=== PATIENT | male | born 1945 | race African-American/Black ===

== ENCOUNTER 2017-08-04 17:10 | Emergency (ER) | payer MEDICARE, MEDICAID ==
[~2017-08-04] VITALS: Ht 175.3 cm; Wt 73.0 kg
[~2017-08-04 17:10] MED LIST: CLOP75TA15 PO; Metoprolol Tartrate PO; OR220 PO; [UNRECOGNIZED DRUG - OTHER] IV
[2017-08-05] MEDS ORDERED: ACETAMINOPHEN 325MG TABLET PO ONE (00:30)
[2017-08-05 05:26] VITALS: BP 148/75
== END 2017-08-05 05:27 | disposition home or self-care (01) ==
LOC: ER 20:12
DX: M25.572 Pain in left ankle and joints of left foot (principal); M25.562 Pain in left knee; E11.9 Type 2 diabetes mellitus without complications; I10 Essential (primary) hypertension; Z98.890 Other specified postprocedural states; W05.0XXA Fall from non-moving wheelchair, initial encounter; Y93.89 Activity, other specified; Y92.89 Other specified places as the place of occurrence of the external cause; Y99.8 Other external cause status
CPT/HCPCS: 73562; 73610; 99284

== ENCOUNTER 2017-08-05 05:38 | Emergency (ER) | payer MEDICARE, MEDICAID ==
[~2017-08-05] VITALS: Ht 175.3 cm; Wt 73.0 kg
[2017-08-05 06:37] VITALS: BP 140/50
== END 2017-08-05 11:07 | disposition home or self-care (01) ==
LOC: ER 05:38
DX: M79.606 Pain in leg, unspecified (principal); Z59.0 Homelessness
CPT/HCPCS: 99283

== ENCOUNTER 2018-09-02 21:03 | Emergency (ER) | payer MEDICARE, MEDICAID ==
[~2018-09-02] VITALS: Ht 170.2 cm; Wt 78.0 kg
[2018-09-03 14:23] VITALS: BP 154/73
== END 2018-09-03 14:37 | disposition home or self-care (01) ==
LOC: ER 21:03
DX: M79.661 Pain in right lower leg (principal); E11.9 Type 2 diabetes mellitus without complications; I10 Essential (primary) hypertension; H54.40 Blindness, one eye, unspecified eye; H26.9 Unspecified cataract; Z89.9 Acquired absence of limb, unspecified
CPT/HCPCS: 99283

== ENCOUNTER 2018-09-03 16:33 | Inpatient (IN) | payer MEDICARE, MEDICAID ==
[~2018-09-03] VITALS: Ht 175.3 cm; Wt 74.8 kg
[2018-09-03] MEDS ORDERED: ACETAMINOPHEN 325MG TABLET PO ONE ×2 (19:30→20:00)
[2018-09-04] MEDS ORDERED: CLONIDINE 0.1MG TABLET PO ONE (09:00)
[2018-09-04 10:57] LABS: BASOPHILS % 0.4 % (0.0-2.0); EOSINOPHILS % 2.7 % (0.0-5.0); HEMATOCRIT. 32.7 % (42.0-52.0); HEMOGLOBIN. 10.5 g/dL (14.0-18.0); LYMPHOCYTES % 20.7 % (20.0-50.0); MEAN CORPUSCULAR HEMOGLOBIN 29.2 pg (28.0-32.0); MEAN CORPUSCULAR VOLUME 90.8 fL (80.0-94.0); MEAN PLATELET VOLUME 8.6 fl (7.4-10.4); MONOCYTES % 9.2 % (2.0-8.0); PLATELET 174 x1000/uL (130-400); RED CELL DISTRIBUTION WIDTH 13.3 % (11.6-14.6)
[2018-09-04 11:01] LABS: CHLORIDE 108 mEq/L (98-107)
[2018-09-04 11:16] LABS: INR 1.2
[2018-09-04 11:22] LABS: CLARITY URINE TURBID (CLEAR); COLOR URINE YELLOW (YELLOW); KETONES URINE NEGATIVE (NEGATIVE); LEUKOCYTE ESTERASE URINE 3+ (NEGATIVE); NITRITE URINE NEGATIVE (NEGATIVE); OCCULT BLOOD URINE 2+ (NEGATIVE); PROTEIN URINE 1+ (NEGATIVE); SPECIFIC GRAVITY URINE 1.019 (1.005-1.030)
[2018-09-04] MEDS ORDERED: SODIUM CHLORIDE 0.9% 1,000 ML IV ONE ×2 (11:45)
[2018-09-04] MEDS ORDERED: INSULIN REGULAR (HUMULIN R) 300UNITS/3ML SUBCUT ONE (11:45)
[2018-09-04] MEDS ORDERED: CEFTRIAXONE 1 G PREMIX 50 ML IV ONE (11:45)
[2018-09-04] MEDS ORDERED: ZOLPIDEM TARTRATE 5MG TABLET PO PRN ×2 (12:30→16:00)
[2018-09-04] MEDS ORDERED: ENOXAPARIN 40MG/0.4ML SYR SUBCUT SCH ×2 (12:30→18:00)
[2018-09-04] MEDS ORDERED: DEXTROSE 50% WATER 50ML SYRINGE IV PRN ×2 (12:30→16:00)
[2018-09-04] MEDS ORDERED: MAGNESIUM/ALUMINUM HYDROXIDE/SIMETHICONE 30ML UDC PO PRN (12:30)
[2018-09-04] MEDS ORDERED: INSULIN LISPRO 100 UNITS/ML SUBCUT SCH ×2 (12:50→13:20)
[2018-09-04] MEDS ORDERED: BLOOD SUGAR DIAGNOSTIC STRIP TEST SCH (13:00)
[2018-09-04] MEDS ORDERED: LEVOFLOXACIN 500MG PREMIX 100 ML IV NR (14:09)
[2018-09-04] MEDS ORDERED: GUAIFENESIN 200MG/10ML SUGAR FREE UDC PO PRN (15:00)
[2018-09-04] MEDS: LEVOFLOXACIN 500MG PREMIX 100 ML IV SCH ×2 (15:00→17:50)
[2018-09-04] MEDS ORDERED: ACETAMINOPHEN 325MG TABLET PO PRN (15:00)
[2018-09-04] MEDS ORDERED: CLONIDINE 0.1MG TABLET PO PRN (15:00)
[2018-09-04] MEDS ORDERED: DOCUSATE SODIUM 100MG CAPSULE PO PRN (15:30)
[2018-09-04] MEDS ORDERED: NITROGLYCERIN 0.4MG TABLET SL SL PRN (15:30)
[2018-09-04] MEDS ORDERED: ONDANSETRON HCL 4MG/2ML INJ IV PRN (15:30)
[2018-09-04] MEDS ORDERED: NA PHOS,M-B/NA PHOS,DI-BA ENEMA 118ML PR PRN (15:30)
[2018-09-04] MEDS ORDERED: IPRATROPIUM/ALBUTEROL 0.5-3(2.5)MG/3ML NEB INH PRN (15:30)
[2018-09-04] MEDS ORDERED: TRAMADOL 50MG TABLET PO PRN (15:30)
[2018-09-04 16:00] VITALS: BP 149/73
[2018-09-04 17:00] VITALS: BP 149/97
[2018-09-04 20:00] VITALS: BP 150/71
[2018-09-04] MEDS: METOPROLOL TARTRATE 25MG TABLET PO SCH (20:18)
[2018-09-04] MEDS: ASCORBIC ACID 500 MG TABLET PO SCH (20:19)
[2018-09-04] MEDS: LISINOPRIL 20MG TABLET PO SCH (20:20)
[2018-09-04] MEDS: BLOOD SUGAR DIAGNOSTIC STRIP TEST SCH (20:25)
[2018-09-04 20:26] LABS: T4 FREE 1.27 ng/dL (0.76-1.46)
[2018-09-04] MEDS: INSULIN LISPRO 100 UNITS/ML SUBCUT SCH (20:34)
[2018-09-04 20:45] LABS: VITAMIN B12 SERUM 1061 pg/mL (211-911)
[2018-09-04 20:50] LABS: FOLIC ACID (FOLATE) SERUM > 20.00 ng/mL (>5.38)
[2018-09-04] MEDS ORDERED: FAMOTIDINE 20MG TABLET PO SCH (21:00)
[2018-09-04] MEDS: FAMOTIDINE 20MG TABLET PO SCH (21:00)
[2018-09-04] MEDS ORDERED: ASCORBIC ACID 500 MG TABLET PO SCH (21:00)
[2018-09-04] MEDS ORDERED: METOPROLOL TARTRATE 25MG TABLET PO SCH (21:00)
[2018-09-04] MEDS ORDERED: LISINOPRIL 20MG TABLET PO SCH (21:00)
[2018-09-04] MEDS ORDERED: INSULIN GLARGINE UD 100 UNITS/ML SYR SUBCUT SCH ×2 (22:00)
[2018-09-05] VITALS: BP 146/78
[2018-09-05] MEDS: ONDANSETRON HCL 4MG/2ML INJ IV PRN ×2 (00:50→12:00)
[2018-09-05 04:00] VITALS: BP 149/70
[2018-09-05] MEDS: BLOOD SUGAR DIAGNOSTIC STRIP TEST SCH ×4 (06:25→20:40)
[2018-09-05] MEDS: INSULIN LISPRO 100 UNITS/ML SUBCUT SCH ×7 (06:34→20:51)
[2018-09-05 08:00] VITALS: BP 161/78
[2018-09-05] MEDS ORDERED: PNEUMOCOCCAL 23-VAL P-SAC VAC 0.5 ML IM ONE (08:00)
[2018-09-05] MEDS: ZINC SULFATE 220 MG ( 50 ) CAPSULE PO SCH (08:38)
[2018-09-05] MEDS: ASCORBIC ACID 500 MG TABLET PO SCH ×2 (08:38→20:35)
[2018-09-05] MEDS: FAMOTIDINE 20MG TABLET PO SCH ×2 (08:39→20:35)
[2018-09-05] MEDS: LISINOPRIL 20MG TABLET PO SCH ×2 (08:39→20:35)
[2018-09-05] MEDS: ASPIRIN 325MG EC TABLET PO SCH (08:39)
[2018-09-05] MEDS: METOPROLOL TARTRATE 25MG TABLET PO SCH ×2 (08:40→20:35)
[2018-09-05] MEDS: ENOXAPARIN 40MG/0.4ML SYR SUBCUT SCH (08:42)
[2018-09-05] MEDS ORDERED: ASPIRIN 325MG EC TABLET PO SCH (09:00)
[2018-09-05] MEDS ORDERED: CEFTRIAXONE 1 G PREMIX 50 ML IV SCH ×2 (09:00→13:00)
[2018-09-05] MEDS ORDERED: ZINC SULFATE 220 MG ( 50 ) CAPSULE PO SCH (09:00)
[2018-09-05 12:00] VITALS: BP 192/90
[2018-09-05 13:13] LABS: *AMPHETAMINES SCREEN URINE NEGATIVE (NEGATIVE); *BARBITURATES SCREEN URINE NEGATIVE (NEGATIVE); *BENZODIAZEPINES SCREEN URINE NEGATIVE (NEGATIVE); *COCAINE SCREEN URINE NEGATIVE (NEGATIVE); METHADONE URINE SCREEN NEGATIVE (NEGATIVE); OPIATES URINE SCREEN NEGATIVE (NEGATIVE)
[2018-09-05 13:14] LABS: CANNABINOID URINE SCREEN NEGATIVE (NEGATIVE); PHENCYCLIDINE URINE SCREEN NEGATIVE (NEGATIVE)
[2018-09-05 16:00] VITALS: BP 169/83
[2018-09-05 20:00] VITALS: BP 143/72
[2018-09-05] MEDS: INSULIN GLARGINE UD 100 UNITS/ML SYR SUBCUT SCH (22:54)
[2018-09-06] VITALS: BP 126/59
[2018-09-06 04:00] VITALS: BP 177/71
[2018-09-06] MEDS: CLONIDINE 0.1MG TABLET PO PRN (05:08)
[2018-09-06] MEDS: BLOOD SUGAR DIAGNOSTIC STRIP TEST SCH ×4 (06:18→21:20)
[2018-09-06] MEDS: INSULIN LISPRO 100 UNITS/ML SUBCUT SCH ×7 (07:20→21:00)
[2018-09-06 08:00] VITALS: BP 156/70
[2018-09-06] MEDS: ENOXAPARIN 40MG/0.4ML SYR SUBCUT SCH ×2 (09:00→09:50)
[2018-09-06] MEDS: ASCORBIC ACID 500 MG TABLET PO SCH ×2 (09:50→21:20)
[2018-09-06] MEDS: ZINC SULFATE 220 MG ( 50 ) CAPSULE PO SCH (09:50)
[2018-09-06] MEDS: FAMOTIDINE 20MG TABLET PO SCH ×2 (09:50→21:20)
[2018-09-06] MEDS: ASPIRIN 325MG EC TABLET PO SCH (09:50)
[2018-09-06] MEDS: METOPROLOL TARTRATE 25MG TABLET PO SCH ×2 (09:50→21:20)
[2018-09-06] MEDS: LISINOPRIL 20MG TABLET PO SCH ×2 (09:51→21:00)
[2018-09-06 12:00] VITALS: BP 179/81
[2018-09-06] MEDS ORDERED: CEFTRIAXONE 1 G PREMIX 50 ML IV SCH (12:00)
[2018-09-06] MEDS ORDERED: LEVOFLOXACIN 500MG PREMIX 100 ML IV SCH (13:00)
[2018-09-06 16:00] VITALS: BP 149/68
[2018-09-06] MEDS: LEVOFLOXACIN 500MG TABLET PO SCH (18:06)
[2018-09-06 20:00] VITALS: BP 129/59
[2018-09-06] MEDS: INSULIN GLARGINE UD 100 UNITS/ML SYR SUBCUT SCH (22:00)
[2018-09-07] VITALS: BP 144/76
[2018-09-07 04:00] VITALS: BP 167/79
[2018-09-07] MEDS: CLONIDINE 0.1MG TABLET PO PRN (04:41)
[2018-09-07] MEDS: BLOOD SUGAR DIAGNOSTIC STRIP TEST SCH ×2 (06:45→12:14)
[2018-09-07] MEDS: INSULIN LISPRO 100 UNITS/ML SUBCUT SCH ×4 (07:20→12:53)
[2018-09-07 08:00] VITALS: BP 163/84
[2018-09-07] MEDS: ZINC SULFATE 220 MG ( 50 ) CAPSULE PO SCH (08:57)
[2018-09-07] MEDS: LISINOPRIL 20MG TABLET PO SCH (08:57)
[2018-09-07] MEDS: ASCORBIC ACID 500 MG TABLET PO SCH (08:57)
[2018-09-07] MEDS: METOPROLOL TARTRATE 25MG TABLET PO SCH (08:57)
[2018-09-07] MEDS: FAMOTIDINE 20MG TABLET PO SCH (08:58)
[2018-09-07] MEDS: ENOXAPARIN 40MG/0.4ML SYR SUBCUT SCH (08:58)
[2018-09-07] MEDS: ASPIRIN 325MG EC TABLET PO SCH (08:58)
[2018-09-07] MEDS: LEVOFLOXACIN 500MG TABLET PO SCH (10:16)
[2018-09-07 12:00] VITALS: BP 178/95
[2018-09-07 12:18] VITALS: BP 178/95
== END 2018-09-07 14:09 | DRG 637 ==
LOC: ER 16:33 → 6EST 09-04 11:57 → SUPCPDRO 09-04 12:19 → EDBEDREQSVC 09-04 12:20 → EDBEDREQ 09-04 12:20 → ENRESERV 09-04 12:55 → ER 09-04 15:50
PROVIDERS: ADMIT Internal Medicine; ATTEND Internal Medicine
DX: E11.00 Type 2 diabetes mellitus with hyperosmolarity without nonketotic hyperglycemic-hyperosmolar coma (NKHHC) (principal); G92 Toxic encephalopathy; N39.0 Urinary tract infection, site not specified; E44.0 Moderate protein-calorie malnutrition; E86.0 Dehydration; D63.8 Anemia in other chronic diseases classified elsewhere; Z68.24 Body mass index [BMI] 24.0-24.9, adult; E78.00 Pure hypercholesterolemia, unspecified; H40.9 Unspecified glaucoma; I10 Essential (primary) hypertension; Z79.4 Long term (current) use of insulin; Z89.511 Acquired absence of right leg below knee
CPT/HCPCS: 36415; 71045; 73590; 80061; 80305; 82607; 82746; 82962; 83036; 83540; 83550; 84439; 84443; 87077; 87186; 90732; 93005; 93970; 96361; 96374; 96375; 97162; 99285; J0696; J1650; J1815; J1956; J2405; J7030; J7040

== ENCOUNTER 2019-03-15 18:25 | Inpatient (IN) | payer MEDICARE, MEDICAID ==
[~2019-03-15] VITALS: Ht 175.3 cm; Wt 68.0 kg
[2019-03-15] MEDS ORDERED: SODIUM CHLORIDE 0.9% 1,000 ML IV ONE (22:55)
[2019-03-15] MEDS ORDERED: MORPHINE SULFATE 4 MG/ML CPJ (NOT FOR IM USE) IV STA (22:55)
[2019-03-15] MEDS ORDERED: ONDANSETRON HCL 4MG/2ML INJ IV STA (22:55)
[2019-03-15] MEDS ORDERED: PIPERACILLIN/TAZ 3.375G PREMIX 50 ML IV ONE (23:00)
[2019-03-15] MEDS ORDERED: VANCOMYCIN 1 G PREMIX 200 ML IV ONE (23:00)
[2019-03-16 01:21] LABS: BASOPHILS % 0.2 % (0.0-2.0); EOSINOPHILS % 1.4 % (0.0-5.0); HEMATOCRIT. 31.3 % (42.0-52.0); HEMOGLOBIN. 10.5 g/dL (14.0-18.0); LYMPHOCYTES % 17.8 % (20.0-50.0); MEAN CORPUSCULAR HEMOGLOBIN 31.4 pg (28.0-32.0); MEAN CORPUSCULAR VOLUME 93.8 fL (80.0-94.0); MEAN PLATELET VOLUME 8.5 fl (7.4-10.4); MONOCYTES % 7.8 % (2.0-8.0); NEUTROPHILS % 72.8 % (40.0-76.0); PLATELET 258 x1000/uL (130-400); RED BLOOD CELL COUNT 3.34 mill/uL (4.7-6.1); RED CELL DISTRIBUTION WIDTH 12.5 % (11.6-14.6)
[2019-03-16 01:28] LABS: CHLORIDE 111 mEq/L (98-107)
[2019-03-16 01:37] LABS: CREATINE KINASE 45 IU/L (39-308); CREATINE KINASE MB FRACTION < 1.0 ng/mL (0.5-3.6)
[2019-03-16 02:06] LABS: INR 1.2; PROTHROMBIN TIME 12.1 sec (9.6-11.0)
[2019-03-16 02:13] LABS: CLARITY URINE CLOUDY (CLEAR); COLOR URINE DARK YELLOW (YELLOW); KETONES URINE TRACE (NEGATIVE); LEUKOCYTE ESTERASE URINE 3+ (NEGATIVE); NITRITE URINE NEGATIVE (NEGATIVE); OCCULT BLOOD URINE NEGATIVE (NEGATIVE); PROTEIN URINE 2+ (NEGATIVE); SPECIFIC GRAVITY URINE 1.019 (1.005-1.030)
[2019-03-16 03:30] VITALS: BP 181/98
[2019-03-16] MEDS ORDERED: PIPERACILLIN/TAZ 3.375G PREMIX 50 ML IV SCH (04:00)
[2019-03-16] MEDS ORDERED: DEXTROSE 50% WATER 50ML SYRINGE IV PRN (04:00)
[2019-03-16] MEDS ORDERED: IPRATROPIUM/ALBUTEROL 0.5-3(2.5)MG/3ML NEB HHN PRN (04:00)
[2019-03-16] MEDS ORDERED: MAGNESIUM/ALUMINUM HYDROXIDE/SIMETHICONE 30ML UDC PO PRN (04:00)
[2019-03-16] MEDS ORDERED: GUAIFENESIN 200MG/10ML SUGAR FREE UDC PO PRN (04:00)
[2019-03-16] MEDS ORDERED: NITROGLYCERIN 0.4MG TABLET SL SL PRN (04:00)
[2019-03-16] MEDS ORDERED: DOCUSATE SODIUM 100MG CAPSULE PO PRN (04:00)
[2019-03-16] MEDS ORDERED: LORAZEPAM 0.5MG TABLET PO PRN (04:00)
[2019-03-16] MEDS ORDERED: ZOLPIDEM TARTRATE 5MG TABLET PO PRN (04:00)
[2019-03-16] MEDS ORDERED: TRAMADOL 50MG TABLET PO PRN (04:00)
[2019-03-16] MEDS: CLONIDINE 0.1MG TABLET PO PRN ×2 (05:32→13:14)
[2019-03-16] MEDS ORDERED: SODIUM CHLORIDE 0.9% 1000ML BAG (SEPSIS BOLUS) IV NR (06:00)
[2019-03-16] MEDS: BLOOD SUGAR DIAGNOSTIC STRIP TEST SCH ×4 (06:44→21:00)
[2019-03-16] MEDS: INSULIN LISPRO 100 UNITS/ML SUBCUT SCH ×5 (07:50→22:55)
[2019-03-16] MEDS: ASCORBIC ACID 500 MG TABLET PO SCH ×2 (08:42→22:37)
[2019-03-16] MEDS: METOPROLOL TARTRATE 25MG TABLET PO SCH ×2 (08:43→22:37)
[2019-03-16] MEDS: LISINOPRIL 20MG TABLET PO SCH ×2 (08:43→22:37)
[2019-03-16] MEDS: ZINC SULFATE 220 MG ( 50 ) CAPSULE PO SCH (08:44)
[2019-03-16] MEDS: FAMOTIDINE 20MG TABLET PO SCH (08:44)
[2019-03-16] MEDS: ENOXAPARIN 40MG/0.4ML SYR SUBCUT SCH (08:44)
[2019-03-16] MEDS: INSULIN GLARGINE UD 100 UNITS/ML SYR SUBCUT SCH (10:00)
[2019-03-16] MEDS ORDERED: INSULIN GLARGINE UD 100 UNITS/ML SYR SUBCUT SCH (10:00)
[2019-03-16] MEDS: PIPERACILLIN/TAZ 3.375G PREMIX 50 ML IV SCH ×2 (10:27→22:34)
[2019-03-16] MEDS ORDERED: VANCOMYCIN 750 MG PREMIX 150 ML IV SCH (14:00)
[2019-03-16 20:00] VITALS: BP 131/71
[2019-03-17] VITALS: BP 133/78
[2019-03-17] MEDS: ONDANSETRON HCL 4MG/2ML INJ IV PRN (01:48)
[2019-03-17 04:00] VITALS: BP 179/92
[2019-03-17] MEDS: PIPERACILLIN/TAZ 3.375G PREMIX 50 ML IV SCH ×3 (05:47→17:43)
[2019-03-17] MEDS: CLONIDINE 0.1MG TABLET PO PRN (06:42)
[2019-03-17] MEDS: BLOOD SUGAR DIAGNOSTIC STRIP TEST SCH ×4 (08:03→21:00)
[2019-03-17] MEDS: ZINC SULFATE 220 MG ( 50 ) CAPSULE PO SCH (09:00)
[2019-03-17] MEDS: ASCORBIC ACID 500 MG TABLET PO SCH ×2 (09:00→22:04)
[2019-03-17] MEDS: FAMOTIDINE 20MG TABLET PO SCH (09:00)
[2019-03-17] MEDS: ENOXAPARIN 40MG/0.4ML SYR SUBCUT SCH (09:00)
[2019-03-17 09:32] LABS: BASOPHILS % 0.3 % (0.0-2.0); EOSINOPHILS % 2.9 % (0.0-5.0); HEMATOCRIT. 30.2 % (42.0-52.0); HEMOGLOBIN. 10.2 g/dL (14.0-18.0); LYMPHOCYTES % 15.8 % (20.0-50.0); MEAN CORPUSCULAR HEMOGLOBIN 30.7 pg (28.0-32.0); MEAN CORPUSCULAR VOLUME 91.4 fL (80.0-94.0); MEAN PLATELET VOLUME 8.3 fl (7.4-10.4); MONOCYTES % 7.2 % (2.0-8.0); NEUTROPHILS % 73.8 % (40.0-76.0); PLATELET 242 x1000/uL (130-400); RED BLOOD CELL COUNT 3.31 mill/uL (4.7-6.1); RED CELL DISTRIBUTION WIDTH 12.6 % (11.6-14.6)
[2019-03-17] MEDS ORDERED: HEPARIN SODIUM 1,000 UNIT/1ML VIAL IV ONE (09:34)
[2019-03-17] MEDS: METOPROLOL TARTRATE 25MG TABLET PO SCH ×2 (09:42→22:05)
[2019-03-17] MEDS: LISINOPRIL 20MG TABLET PO SCH ×2 (09:42→22:05)
[2019-03-17] MEDS: VANCOMYCIN 1 G PREMIX 200 ML IV SCH (09:42)
[2019-03-17] MEDS: INSULIN GLARGINE UD 100 UNITS/ML SYR SUBCUT SCH (09:43)
[2019-03-17 09:57] LABS: CHLORIDE 109 mEq/L (98-107)
[2019-03-17] MEDS ORDERED: FENTANYL CITRATE/PF 50MCG/ML 2ML VIAL ONE (10:51)
[2019-03-17] MEDS ORDERED: IODIXANOL 320MG/ML 100 ML BOTTLE IV ONE (10:52)
[2019-03-17] MEDS ORDERED: MIDAZOLAM HCL 2 MG/2 ML VIAL ONE (10:52)
[2019-03-17] MEDS ORDERED: LIDOCAINE HCL 1% 20ML VIAL (Pyxis) INJ ONE (10:53)
[2019-03-17] MEDS ORDERED: HYDRALAZINE 20MG/ML VIAL ONE (11:11)
[2019-03-17] MEDS ORDERED: IOHEXOL-300 100 ML BOTTLE ONE (11:59)
[2019-03-17] MEDS: INSULIN LISPRO 100 UNITS/ML SUBCUT SCH ×3 (12:50→21:00)
[2019-03-17] MEDS ORDERED: PROTAMINE SULFATE 10MG/ML VIAL 5ML IV ONE (14:21)
[2019-03-17 16:00] VITALS: BP 119/69
[2019-03-17] MEDS: MORPHINE SULFATE 4 MG/ML CPJ (NOT FOR IM USE) IV PRN (17:42)
[2019-03-17 20:00] VITALS: BP 155/74
[2019-03-18] VITALS: BP 138/70
[2019-03-18] MEDS: PIPERACILLIN/TAZ 3.375G PREMIX 50 ML IV SCH ×3 (02:28→17:04)
[2019-03-18] MEDS: VANCOMYCIN 1 G PREMIX 200 ML IV SCH ×2 (03:54→21:26)
[2019-03-18 04:00] VITALS: BP 170/80
[2019-03-18] MEDS: ACETAMINOPHEN 325MG TABLET PO PRN (05:15)
[2019-03-18] MEDS: BLOOD SUGAR DIAGNOSTIC STRIP TEST SCH ×4 (08:02→21:46)
[2019-03-18] MEDS: ENOXAPARIN 40MG/0.4ML SYR SUBCUT SCH (09:00)
[2019-03-18] MEDS: METOPROLOL TARTRATE 25MG TABLET PO SCH ×2 (09:09→21:25)
[2019-03-18] MEDS: FAMOTIDINE 20MG TABLET PO SCH (09:09)
[2019-03-18] MEDS: LISINOPRIL 20MG TABLET PO SCH ×2 (09:09→21:25)
[2019-03-18] MEDS: ASCORBIC ACID 500 MG TABLET PO SCH ×2 (09:09→21:25)
[2019-03-18] MEDS: ZINC SULFATE 220 MG ( 50 ) CAPSULE PO SCH (09:10)
[2019-03-18] MEDS: INSULIN LISPRO 100 UNITS/ML SUBCUT SCH ×4 (09:22→21:00)
[2019-03-18] MEDS: INSULIN GLARGINE UD 100 UNITS/ML SYR SUBCUT SCH (10:00)
[2019-03-18] MEDS: MORPHINE SULFATE 4 MG/ML CPJ (NOT FOR IM USE) IV PRN (17:40)
[2019-03-18] MEDS: CLONIDINE 0.1MG TABLET PO PRN (18:02)
[2019-03-18 20:00] VITALS: BP 137/81
[2019-03-19] VITALS: BP 162/85
[2019-03-19] MEDS: MORPHINE SULFATE 4 MG/ML CPJ (NOT FOR IM USE) IV PRN ×2 (01:25→09:08)
[2019-03-19] MEDS: CLONIDINE 0.1MG TABLET PO PRN ×2 (01:25→01:38)
[2019-03-19] MEDS: PIPERACILLIN/TAZ 3.375G PREMIX 50 ML IV SCH ×3 (02:00→18:23)
[2019-03-19 04:00] VITALS: BP 170/87
[2019-03-19] MEDS: BLOOD SUGAR DIAGNOSTIC STRIP TEST SCH ×4 (07:20→21:30)
[2019-03-19] MEDS: INSULIN LISPRO 100 UNITS/ML SUBCUT SCH ×4 (07:50→21:30)
[2019-03-19 07:53] LABS: CHLORIDE 108 mEq/L (98-107)
[2019-03-19 08:00] VITALS: BP 157/65
[2019-03-19 08:03] LABS: BASOPHILS % 0.2 % (0.0-2.0); EOSINOPHILS % 2.2 % (0.0-5.0); HEMATOCRIT. 28.9 % (42.0-52.0); HEMOGLOBIN. 9.6 g/dL (14.0-18.0); LYMPHOCYTES % 13.8 % (20.0-50.0); MEAN CORPUSCULAR HEMOGLOBIN 30.2 pg (28.0-32.0); MEAN CORPUSCULAR VOLUME 90.9 fL (80.0-94.0); MEAN PLATELET VOLUME 8.5 fl (7.4-10.4); MONOCYTES % 10.2 % (2.0-8.0); NEUTROPHILS % 73.6 % (40.0-76.0); PLATELET 199 x1000/uL (130-400); RED BLOOD CELL COUNT 3.18 mill/uL (4.7-6.1); RED CELL DISTRIBUTION WIDTH 12.5 % (11.6-14.6)
[2019-03-19] MEDS: ASCORBIC ACID 500 MG TABLET PO SCH ×2 (09:11→22:29)
[2019-03-19] MEDS: ZINC SULFATE 220 MG ( 50 ) CAPSULE PO SCH (09:11)
[2019-03-19] MEDS: METOPROLOL TARTRATE 25MG TABLET PO SCH ×2 (09:11→23:19)
[2019-03-19] MEDS: FAMOTIDINE 20MG TABLET PO SCH (09:12)
[2019-03-19] MEDS: LISINOPRIL 20MG TABLET PO SCH ×2 (09:12→22:29)
[2019-03-19] MEDS: ENOXAPARIN 40MG/0.4ML SYR SUBCUT SCH (09:12)
[2019-03-19] MEDS: INSULIN GLARGINE UD 100 UNITS/ML SYR SUBCUT SCH (09:13)
[2019-03-19 12:00] VITALS: BP 137/59
[2019-03-19] MEDS: VANCOMYCIN 1 G PREMIX 200 ML IV SCH (14:45)
[2019-03-19 16:00] VITALS: BP 140/70
[2019-03-19 20:00] VITALS: BP 146/70
[2019-03-19] MEDS: ACETAMINOPHEN 325MG TABLET PO PRN (22:28)
[2019-03-20] VITALS: BP 134/61
[2019-03-20] MEDS: PIPERACILLIN/TAZ 3.375G PREMIX 50 ML IV SCH ×4 (02:00→16:58)
[2019-03-20 04:00] VITALS: BP 147/72
[2019-03-20] MEDS: BLOOD SUGAR DIAGNOSTIC STRIP TEST SCH ×4 (07:41→21:00)
[2019-03-20] MEDS: INSULIN LISPRO 100 UNITS/ML SUBCUT SCH ×4 (07:50→21:00)
[2019-03-20 08:00] VITALS: BP 120/63
[2019-03-20] MEDS: ENOXAPARIN 40MG/0.4ML SYR SUBCUT SCH (09:00)
[2019-03-20] MEDS: INSULIN GLARGINE UD 100 UNITS/ML SYR SUBCUT SCH (10:00)
[2019-03-20] MEDS ORDERED: LIDOCAINE HCL 1% 20ML VIAL (Pyxis) INJ ONE ×2 (10:04→12:02)
[2019-03-20] MEDS ORDERED: SODIUM BICARBONATE 4% (2.4MEQ) 5ML VIAL IV ONE (10:04)
[2019-03-20] MEDS: LISINOPRIL 20MG TABLET PO SCH ×2 (10:15→22:01)
[2019-03-20] MEDS: METOPROLOL TARTRATE 25MG TABLET PO SCH ×2 (10:15→22:02)
[2019-03-20] MEDS: FAMOTIDINE 20MG TABLET PO SCH (10:16)
[2019-03-20] MEDS: ASCORBIC ACID 500 MG TABLET PO SCH ×2 (10:16→22:02)
[2019-03-20] MEDS: ZINC SULFATE 220 MG ( 50 ) CAPSULE PO SCH (10:16)
[2019-03-20] MEDS: VANCOMYCIN 1 G PREMIX 200 ML IV SCH ×2 (10:24→12:27)
[2019-03-20] MEDS: MORPHINE SULFATE 4 MG/ML CPJ (NOT FOR IM USE) IV PRN ×3 (11:35→23:53)
[2019-03-20 12:00] VITALS: BP 143/74
[2019-03-20] MEDS ORDERED: BACITRACIN 15GM TUBE TOP ONE (12:02)
[2019-03-20] MEDS ORDERED: THROMBIN (BOVINE) 5000 UNITS/VIAL TOP ONE (12:02)
[2019-03-20] MEDS ORDERED: HEPARIN SODIUM 1,000 UNIT/1ML VIAL IV ONE (12:02)
[2019-03-20] MEDS ORDERED: BACITRACIN 50,000 UNITS/VIAL ONE ×2 (12:03→12:06)
[2019-03-20] MEDS ORDERED: BUPIVACAINE HCL/PF 0.5% (5MG/ML) 10ML ONE ×2 (12:03→12:06)
[2019-03-20] MEDS ORDERED: DEXTROSE 50% WATER 50ML SYRINGE IV PRN (13:00)
[2019-03-20 16:00] VITALS: BP 158/82
[2019-03-20 20:00] VITALS: BP 124/66
[2019-03-20] MEDS: LATANOPROST 0.005% OPHTH DROPS 2.5ML BOTHEYE SCH (22:02)
[2019-03-21] VITALS: BP 152/71
[2019-03-21] MEDS: PIPERACILLIN/TAZ 3.375G PREMIX 50 ML IV SCH ×2 (02:00→11:38)
[2019-03-21 04:00] VITALS: BP 145/75
[2019-03-21] MEDS: VANCOMYCIN 1 G PREMIX 200 ML IV SCH ×2 (05:12→20:51)
[2019-03-21] MEDS: BLOOD SUGAR DIAGNOSTIC STRIP TEST SCH ×4 (06:44→21:00)
[2019-03-21 08:00] VITALS: BP 153/78
[2019-03-21] MEDS: ENOXAPARIN 40MG/0.4ML SYR SUBCUT SCH (09:00)
[2019-03-21] MEDS ORDERED: PAPAVERINE HCL 30 MG/ML 2ML IV ONE (10:55)
[2019-03-21] MEDS ORDERED: BUPIVACAINE HCL/PF 0.5% (5MG/ML) 10ML ONE (10:56)
[2019-03-21] MEDS ORDERED: THROMBIN (BOVINE) 5000 UNITS/VIAL TOP ONE (10:56)
[2019-03-21] MEDS ORDERED: LIDOCAINE HCL 1% 20ML VIAL (Pyxis) INJ ONE (10:56)
[2019-03-21] MEDS ORDERED: BACITRACIN 15GM TUBE TOP ONE (10:56)
[2019-03-21] MEDS ORDERED: BACITRACIN 50,000 UNITS/VIAL ONE (10:57)
[2019-03-21] MEDS ORDERED: HEPARIN SODIUM 1,000 UNIT/1ML VIAL IV ONE (10:58)
[2019-03-21] MEDS: ASCORBIC ACID 500 MG TABLET PO SCH ×2 (11:37→20:20)
[2019-03-21] MEDS: LISINOPRIL 20MG TABLET PO SCH ×2 (11:37→20:23)
[2019-03-21] MEDS: ZINC SULFATE 220 MG ( 50 ) CAPSULE PO SCH (11:37)
[2019-03-21] MEDS: FAMOTIDINE 20MG TABLET PO SCH (11:37)
[2019-03-21] MEDS: METOPROLOL TARTRATE 25MG TABLET PO SCH ×2 (11:38→23:16)
[2019-03-21 12:00] VITALS: BP 150/75
[2019-03-21] MEDS: INSULIN LISPRO 100 UNITS/ML SUBCUT SCH ×3 (12:39→21:00)
[2019-03-21] MEDS: MEROPENEM 1000MG in NORMAL SALINE 100ML IV SCH ×2 (14:00→23:17)
[2019-03-21] MEDS ORDERED: FENTANYL CITRATE/PF 50MCG/ML 2ML VIAL ONE (16:39)
[2019-03-21] MEDS ORDERED: LIDOCAINE HCL/PF 1% 10 MG/ML 5ML VIAL ONE (16:39)
[2019-03-21] MEDS ORDERED: GLYCOPYRROLATE 0.2 MG/ML 2ML VIAL ONE (16:39)
[2019-03-21] MEDS ORDERED: ONDANSETRON HCL 4MG/2ML INJ ONE (16:39)
[2019-03-21] MEDS ORDERED: PROPOFOL 200MG/20ML VIAL IV ONE (16:39)
[2019-03-21] MEDS ORDERED: METOCLOPRAMIDE HCL 10MG/2ML VIAL ONE (16:39)
[2019-03-21] MEDS ORDERED: MIDAZOLAM HCL 2 MG/2 ML VIAL ONE (16:39)
[2019-03-21] MEDS ORDERED: SUCCINYLCHOLINE CHLORIDE 200MG/10ML IV ONE (16:39)
[2019-03-21] MEDS ORDERED: HEPARIN 1000 UNITS/ML 10ML ONE (17:34)
[2019-03-21] MEDS ORDERED: PIPERACILLIN/TAZOBACTAM 3.375 G in DEXT 5% WATER 100 ML IV SCH (18:00)
[2019-03-21] MEDS ORDERED: PROTAMINE SULFATE 10MG/ML VIAL 5ML IV ONE (18:08)
[2019-03-21] MEDS ORDERED: SODIUM CHLORIDE 0.9% 1,000 ML IV ONE (18:28)
[2019-03-21] MEDS ORDERED: HYDROMORPHONE HCL/PF 2MG/ML CPJ IV PRN (18:30)
[2019-03-21] MEDS ORDERED: MEPERIDINE HCL/PF 25MG/ML CPJ IV PRN (18:30)
[2019-03-21] MEDS ORDERED: ONDANSETRON HCL 4MG/2ML INJ IV PRN (18:30)
[2019-03-21] MEDS ORDERED: MORPHINE SULFATE 2 MG/ML CPJ (NOT FOR IM USE) IV PRN (18:30)
[2019-03-21 20:00] VITALS: BP 161/72
[2019-03-21] MEDS: ONDANSETRON HCL 4MG/2ML INJ IV PRN (20:37)
[2019-03-21] MEDS: MORPHINE SULFATE 2 MG/ML CPJ (NOT FOR IM USE) IV PRN (20:38)
[2019-03-21] MEDS: CLONIDINE 0.1MG TABLET PO PRN (23:15)
[2019-03-21] MEDS: ACETAMINOPHEN 325MG TABLET PO PRN (23:15)
[2019-03-21] MEDS: LATANOPROST 0.005% OPHTH DROPS 2.5ML BOTHEYE SCH (23:16)
[2019-03-22] VITALS: BP 177/89
[2019-03-22 04:00] VITALS: BP 159/70
[2019-03-22] MEDS: MEROPENEM 1000MG in NORMAL SALINE 100ML IV SCH ×2 (05:41→13:33)
[2019-03-22] MEDS: MORPHINE SULFATE 2 MG/ML CPJ (NOT FOR IM USE) IV PRN (05:52)
[2019-03-22 08:00] VITALS: BP 136/76
[2019-03-22] MEDS: BLOOD SUGAR DIAGNOSTIC STRIP TEST SCH ×3 (08:15→17:45)
[2019-03-22] MEDS: METOPROLOL TARTRATE 25MG TABLET PO SCH (08:34)
[2019-03-22] MEDS: ASCORBIC ACID 500 MG TABLET PO SCH (08:34)
[2019-03-22] MEDS: ZINC SULFATE 220 MG ( 50 ) CAPSULE PO SCH (08:34)
[2019-03-22] MEDS: FAMOTIDINE 20MG TABLET PO SCH (08:34)
[2019-03-22] MEDS: ENOXAPARIN 40MG/0.4ML SYR SUBCUT SCH (08:35)
[2019-03-22] MEDS: LISINOPRIL 20MG TABLET PO SCH (08:35)
[2019-03-22] MEDS: INSULIN LISPRO 100 UNITS/ML SUBCUT SCH ×3 (08:35→17:46)
[2019-03-22] MEDS ORDERED: FENTANYL CITRATE/PF 50MCG/ML 2ML VIAL ONE (10:00)
[2019-03-22] MEDS ORDERED: MIDAZOLAM HCL 2 MG/2 ML VIAL ONE (10:00)
[2019-03-22] MEDS ORDERED: BACITRACIN 50,000 UNITS/VIAL ONE (10:01)
[2019-03-22] MEDS ORDERED: LIDOCAINE HCL 1% 20ML VIAL (Pyxis) INJ ONE (10:01)
[2019-03-22] MEDS ORDERED: ROCURONIUM BROMIDE 10MG/ML VIAL 5ML IV ONE (10:01)
[2019-03-22] MEDS ORDERED: BUPIVACAINE HCL/PF 0.5% (5MG/ML) 10ML ONE (10:01)
[2019-03-22] MEDS ORDERED: PIPERACILLIN/TAZOBACTAM 3.375 G in DEXT 5% WATER 100 ML IV ONE (10:15)
[2019-03-22] MEDS ORDERED: HYDRALAZINE 20MG/ML VIAL ONE (11:39)
[2019-03-22] MEDS ORDERED: ONDANSETRON HCL 4MG/2ML INJ ONE (11:40)
[2019-03-22 14:08] LABS: BASOPHILS % 0.3 % (0.0-2.0); EOSINOPHILS % 0.9 % (0.0-5.0); HEMATOCRIT. 23.7 % (42.0-52.0); LYMPHOCYTES % 10.7 % (20.0-50.0); MEAN CORPUSCULAR HEMOGLOBIN 30.6 pg (28.0-32.0); MEAN CORPUSCULAR VOLUME 90.9 fL (80.0-94.0); MEAN PLATELET VOLUME 8.3 fl (7.4-10.4); MONOCYTES % 9.2 % (2.0-8.0); NEUTROPHILS % 78.9 % (40.0-76.0); PLATELET 179 x1000/uL (130-400); RED BLOOD CELL COUNT 2.61 mill/uL (4.7-6.1); RED CELL DISTRIBUTION WIDTH 12.6 % (11.6-14.6)
[2019-03-22] MEDS: VANCOMYCIN 1 G PREMIX 200 ML IV SCH (15:29)
[2019-03-22 16:00] VITALS: BP 138/43
[2019-03-22 16:04] VITALS: BP 130/69
[2019-03-23] MEDS ORDERED: VANCOMYCIN 750 MG PREMIX 150 ML IV SCH (12:00)
== END 2019-03-22 20:01 | DRG 853 ==
LOC: ER 18:25 → EDBEDREQ 23:08 → 6EST 03-16 00:44 → EDBEDREQTM 03-16 00:51 → EDBEDREQ 03-16 00:51 → EDBEDREQDT 03-16 00:51 → ENRESERV 03-16 01:41
PROVIDERS: ADMIT Internal Medicine; ATTEND Internal Medicine
PROC: 047N3ZZ Dilation of Left Popliteal Artery, Percutaneous Approach (ICD-10-PCS; principal; 2019-03-17)
PROC: 04HL33Z Insertion of Infusion Device into Left Femoral Artery, Percutaneous Approach (ICD-10-PCS; 2019-03-17)
PROC: B40G1ZZ Plain Radiography of Left Lower Extremity Arteries using Low Osmolar Contrast (ICD-10-PCS; 2019-03-17)
PROC: 02HV33Z Insertion of Infusion Device into Superior Vena Cava, Percutaneous Approach (ICD-10-PCS; 2019-03-20)
PROC: B5181ZA Fluoroscopy of Superior Vena Cava using Low Osmolar Contrast, Guidance (ICD-10-PCS; 2019-03-20)
PROC: B548ZZA Ultrasonography of Superior Vena Cava, Guidance (ICD-10-PCS; 2019-03-20)
PROC: 0QB70ZZ Excision of Left Upper Femur, Open Approach (ICD-10-PCS; 2019-03-21)
PROC: 041L0JL Bypass Left Femoral Artery to Popliteal Artery with Synthetic Substitute, Open Approach (ICD-10-PCS; 2019-03-21)
PROC: 0Y6Q0Z3 Detachment at Left 1st Toe, Low, Open Approach (ICD-10-PCS; 2019-03-22)
PROC: 0Y6U0Z3 Detachment at Left 3rd Toe, Low, Open Approach (ICD-10-PCS; 2019-03-22)
DX: A41.9 Sepsis, unspecified organism (principal); N17.0 Acute kidney failure with tubular necrosis; M86.9 Osteomyelitis, unspecified; E44.0 Moderate protein-calorie malnutrition; N39.0 Urinary tract infection, site not specified; E11.52 Type 2 diabetes mellitus with diabetic peripheral angiopathy with gangrene; L03.119 Cellulitis of unspecified part of limb; I96 Gangrene, not elsewhere classified; R65.20 Severe sepsis without septic shock; D63.8 Anemia in other chronic diseases classified elsewhere; E11.42 Type 2 diabetes mellitus with diabetic polyneuropathy; E11.621 Type 2 diabetes mellitus with foot ulcer; R26.9 Unspecified abnormalities of gait and mobility; I70.202 Unspecified atherosclerosis of native arteries of extremities, left leg; L97.529 Non-pressure chronic ulcer of other part of left foot with unspecified severity; E11.22 Type 2 diabetes mellitus with diabetic chronic kidney disease; N18.9 Chronic kidney disease, unspecified; I12.9 Hypertensive chronic kidney disease with stage 1 through stage 4 chronic kidney disease, or unspecified chronic kidney disease; E11.69 Type 2 diabetes mellitus with other specified complication; B96.20 Unspecified Escherichia coli [E. coli] as the cause of diseases classified elsewhere; Z79.4 Long term (current) use of insulin; Z89.511 Acquired absence of right leg below knee; Z89.022 Acquired absence of left finger(s); Z87.891 Personal history of nicotine dependence; Z79.899 Other long term (current) drug therapy; Z79.84 Long term (current) use of oral hypoglycemic drugs
CPT/HCPCS: 36246; 36415; 36573; 71045; 73630; 75710; 76937; 80048; 80202; 81003; 82550; 82553; 82962; 83036; 83605; 84145; 84484; 85347; 85651; 86850; 86900; 87070; 87075; 87077; 87186; 88305; 88311; 93005; 93923; 96365; 99285; C1714; C1725; C1760; C1768; C1769; C1887; C1893; C1894; J0330; J0360; J1644; J1650; J1815; J2185; J2250; J2270; J2405; J2440; J2543; J2704; J2720; J2765; J3010; J3370; J3490; J7030; J7040; J7060; J7620; Q9967